=== PATIENT | male | born 1935 | race Caucasian/White ===

== ENCOUNTER 2017-01-23 19:07 | Inpatient (IN) | payer OTHER ==
[~2017-01-23] VITALS: Ht 172.7 cm; Wt 69.9 kg
--- NOTE | ~2017-01-23 | H ---
[facility] [place] [address] HISTORY AND PHYSICAL Name: MARY PARSONS Room #: 450-P ADM IN M.R.#: [id number] Admission: 01/23/17 Attend Phys: Jon Christopher MD Discharge: Date of : 37 Report #: [id number] THIS REPORT FOR: //name// CC: Jana Christopher DATE OF SERVICE: 01/24/2017 CHIEF COMPLAINT: Confusion and disorientation. HISTORY OF PRESENT ILLNESS: The patient is an 81-year-old male who presented to the ER last night after having approximately 2-day period of just being confused, slow memory and ____. He had no focal numbness or weakness. He has no prior memory issues. He states he just did not feel right about 2 days ago, could not figure it out, he kept his normal activities, but it was just somewhat slow. PAST MEDICAL HISTORY: Significant for prior ureteral stent, hyperlipidemia, some unknown abdominal wall cancer, right-sided hiatal hernia, rheumatic fever as a child, and appendectomy. MEDICATIONS: He only takes Benadryl p.r.n. He has taken Toprol, Zestril, simvastatin in the past, but none currently. ALLERGIES: PENICILLIN and SULFA. SOCIAL HISTORY: Nonsmoker, nondrinker, no alcohol, no recreational drugs. Lives independently with . REVIEW OF SYSTEMS: CONSTITUTIONAL: No fever or chills. HEENT: No headaches or visual changes. CHEST: No chest pain, tightness in chest, shortness of breath, cough or sputum production. GASTROINTESTINAL: No nausea, vomiting, diarrhea or constipation. GENITOURINARY: No burning or frequency. EXTREMITIES: No swelling or wounds. He does have knee pain, which is chronic. SKIN: No rashes or wounds. NEUROLOGIC: He has general confusion and slowness with poor memory. No focal weakness, no focal numbness. PHYSICAL EXAMINATION: VITAL SIGNS: In the ER, blood pressure 117/79, pulse was 86, respiratory rate 18. He is afebrile, O2 sats 97%. GENERAL: The patient is a very pleasant male who is awake, alert, in no acute distress. He recognizes me and his is present for exam today. [address] [address] HISTORY AND PHYSICAL Name: MARY PARSONS Room #: 450-[facility] IN M.R.#: [id number] Admission: 01/23/17 Attend Phys: Jon Christopher MD Discharge: Date of : 37 Report #: [id number] HEENT: His mucous membranes are moist. NECK: Supple without adenopathy, thyromegaly or bruits. CHEST: Clear to auscultation bilaterally with no crackles or wheezes. CARDIOVASCULAR: Regular rhythm without murmur, no S4. ABDOMEN: Soft, nondistended, nontender, no masses. Bowel sounds are active. EXTREMITIES: Show no edema and pulses are intact. NEUROLOGIC: He is awake, alert and oriented times 3. His cranial nerves 2-12 are grossly intact. His gross motor is equal bilaterally. Gross sensory is equal bilaterally and his coordination is normal. His responses are just slightly slow, but not significant as far as his verbal responses. DIAGNOSTIC DATA: His EKG showed a sinus rhythm of 81. No ST segment changes. There are some left axis deviation, which is unchanged. LABORATORY DATA: Sodium 139, potassium 4.3, chloride 106, bicarbonate 26, BUN 25, creatinine 1.0, glucose 89, calcium 9.2, T bili 0.6, D bili corrected ____. AST 26, ALT 21. Troponin less than 0.04. BNP 68, albumin 3.7. INR 1.0. WBCs 8.2, hemoglobin 13.5, hematocrit 39.5, platelet count 174, 73 segs, 17 lymphs. Urinalysis is negative. CT of the head shows a deep matter change on the left in the subinsular region ____ developing an old infarct. Chest x-ray shows no process. ASSESSMENT AND PLAN: Cerebrovascular accident with some confusion, no focal weakness. Start him on an aspirin, getting a carotid Doppler and echocardiogram and an MRI of his brain. Neurology was consulted in the ER since he is outside of the window for intervention, he is not a candidate for that. He does not need any PT and OT at this time. Once his evaluation is done, I suspect he will be discharged to home. We will monitor his pressure closely and we will restart him on a statin. By: 0940 [id number] Jon Christopher MD /nt
--- NOTE | ~2017-01-23 | 2DMMODE ---
[facility] [address] [place] [address] 2 D/M-MODE ECHOCARDIOGRAM Name: MARY PARSONS Room #: 450-P [facility] IN ..#: [id number] Admission: 01/23/17 Attend Phys: Jon Christopher, Discharge: Date of : 37 Date of Service: 01/25/17 0942 Report #: [id number] THIS REPORT FOR: //name// APPROVED REPORT Study performed: 01/25/2017 08:46:10 EXAM: Comprehensive 2D, Doppler, and color-flow Echocardiogram Patient Location: Out-Patient Room #: [facility] Status: routine Other Information Study Quality: Adequate/low parasternal window Indications CVA/TIA Echo Enhancing Agent Indication: Rule out Shunt Agent(s) / Amount(s) Used: Agitated Saline 6 cc 2D Dimensions RVDd: 24.13 mm LVEF(%): 57.39 (>50%) IVSd: 9.44 (7-11mm) LVOT Diam: 21.65 (18-24mm) LVDd: 43.47 mm PWd: 8.64 (7-11mm) LVDs: 30.46 (25-40mm) Aortic Root: 38.55 mm Chang's LVEF: 57.39 % Volumes Left Atrial Volume (Systole) Single Plane 4CH: 16.32 mL Single Plane 2CH: 16.58 mL LA ESV Index: 10.00 mL/m2 Aortic Valve AoV Peak Denis.: 1.23 m/s AO Peak Gr.: 6.06 mmHg LVOT Max P.19 mmHg LVOT Max V: 1.02 m/s GAMALIEL Vmax: 3.06 cm2 Mitral Valve E/A Ratio: 0.7 MV Decel. Time: 282.06 ms [facility] [place] [address] 2 D/M-MODE ECHOCARDIOGRAM Name: MARY PARSONS [facility] .R.#: [id number] Admission: 01/23/17 Attend Phys: Jno Christopher, Discharge: Date of : 37 Date of Service: 01/25/17 0942 Report #: [id number] MV E Max Denis.: 0.53 m/s MV A Denis.: 0.72 m/s MV PHT: 81.80 ms IVRT: 87.66 ms Pulmonary Valve PV Peak Denis.: 0.77 m/s PV Peak Gr.: 2.36 mmHg Pulmonary Vein P Vein S: 0.68 m/s P Vein A: 0.34 m/s P Vein D: 0.37 m/s P Vein A Dur.: 110.7 msec P Vein S/D Ratio: 1.84 Tricuspid Valve TR Peak Denis.: 2.40 m/s RAP Estimate: 5.00 mmHg TR Peak Gr.: 22.97 mmHg PA Pressure: 28.00 mmHg Left Ventricle The left ventricle is normal size. There is normal LV segmental wall motion. There is normal left ventricular wall thickness. Left ventricular systolic function is normal. LVEF is 55%. Mild diastolic dysfunction is present (impaired relaxation pattern). Right Ventricle The right ventricle is normal size. The right ventricular systolic function is normal. Atria The left atrium size is normal. Injection of bubbles documented no interatrial shunt. The right atrium size is normal. Aortic Valve Aortic valve leaflets are mildly thickened. Mild aortic regurgitation. There is no aortic valvular stenosis. Mitral Valve Mitral valve leaflets appear grossly normal Trace mitral regurgitation. No evidence of mitral valve stenosis. Tricuspid Valve The tricuspid valve is normal in structure. There is trace to mild tricuspid regurgitation. The right atrial pressure is estimated at 5 mmHg. Estimated PAP is 28mmHg. Pulmonic Valve [address] [address] 2 D/M-MODE ECHOCARDIOGRAM Name: MARY PARSONS Room #: 450-P [facility] IN [facility]#: [id number] Admission: 01/23/17 Attend Phys: Jon Christopher, Discharge: Date of : 37 Date of Service: 01/25/17 0942 Report #: [id number] Pulmonic valve is not well visualized. Great Vessels Aortic root is mildly dilated. Ascending aorta is not well visualized. IVC is normal in size and collapses >50% with inspiration. Pericardium There is no pericardial effusion. <Conclusion> Left ventricular systolic function is normal. There is normal LV segmental wall motion. LVEF 55%. Injection of bubbles documented no interatrial shunt. Aortic valve leaflets are mildly thickened. Cannot rule out bicuspid valve. Mild aortic regurgitation no stenosis. Mitral valve leaflets appear grossly normal. Trace mitral regurgitation. Pulmonary artery pressure of 28mmHg There is no pericardial effusion. <ELECTRONICALLY SIGNED> By: Todd Lora MD, FACC 01/25/1742 1 1 Todd Lora MD, FACC /INF
--- NOTE | ~2017-01-23 | EKG ---
[address] [address] ELECTROCARDIOGRAM REPORT Name: MARY PARSONS Room #: 450- ADM IN M.R.#: [id number] Admission: 01/23/17 Attend Phys: Jon Christopher MD Discharge: Date of : 37 Report #: [id number] THIS REPORT FOR: //name// [facility] ED Test Date: 2017-01-23 Test Time: 19:18:04 Pat Name: MARY PARSONS Department: Room: [facility] Gender: M Silverlight Developer: VICKEY Rodriguez : 1935 Requested By: Beverly Manriquez Order Number: [id number] MD: Todd Lora Measurements Intervals Stigler Rate: 81 P: 77 DE: 147 QRS: -28 QRSD: 90 T: 68 QT: 363 QTc: 422 Interpretive Statements Sinus rhythm Borderline left axis deviation Baseline wander in lead(s) V2 Compared to ECG 09/19/2010 08:04:54 No significant change was found Electronically Signed On 01-25-2017 8:36:13 CDT by Todd Lora [email or web address] <ELECTRONICALLY SIGNED> By: Todd Lora MD, [facility] 01/25/17 0836 1918 17 Todd Lora MD, [facility] /EPI
[~2017-01-23 19:07] MED LIST: ASPIRIN325; BYSTOLIC 5 MG5 M1; EFFIENT10 MG PO; LISINOPRIL5 MG PO; LIVALO4 MG; NITROGLYCERIN0.4 MG SL; SIMVASTATIN40 MG PO; TOPROL XL25 MG PO
[2017-01-23 19:08] VITALS: BP 117/79
[2017-01-23] MEDS ORDERED: BENADRYL25 MG PO (19:32)
[2017-01-23 19:40] LABS: BASOPHILS 0.8 % (0.0-2.0); EOSINOPHILS 0.8 % (0.0-3.0); HEMATOCRIT 39.5 % (42.0-52.0); HEMOGLOBIN 13.5 gm/dL (14.0-18.0); LYMPHOCYTES 17.5 % (24.0-44.0); MCH 30.8 pg (26.0-34.0); MCHC 34.1 g/dL (28.0-37.0); MCV 90.2 fL (80.0-100.0); MONOCYTES 7.4 % (1.0-8.0); PLATELET COUNT 174 thou/uL (150-400); POLYS 73.5 % (36.0-66.0); RBC 4.38 mil/uL (4.50-6.00); RDW 14.4 % (10.5-14.5); WBC 8.2 thou/uL (4.0-11.0)
[2017-01-23 19:45] LABS: MANUAL DIFF NO
[2017-01-23 19:50] LABS: ANION GAP 7 mmol/L (7-16); BUN 25 mg/dL (7-18); CALCIUM 9.2 mg/dL (8.5-10.1); CHLORIDE 106 mmol/L (98-107); CO2 26 mmol/L (21-32); GLUCOSE 89 mg/dL (74-106); POTASSIUM 4.3 mmol/L (3.5-5.1); SODIUM 139 mmol/L (136-145)
[2017-01-23 19:58] LABS: PROTIME 10.2 Seconds (9.3-11.4)
[2017-01-23 19:58] LABS: URINE BILIRUBIN NEGATIVE (Negative); URINE BLOOD NEGATIVE (Negative); URINE COLOR YELLOW; URINE GLUCOSE-RANDOM* NEGATIVE (Negative); URINE KETONES NEGATIVE (Negative); URINE NITRITE NEGATIVE (Negative); URINE PROTEIN (DIPSTICK) NEGATIVE (Negative); URINE SPECIFIC GRAVITY 1.025 (1.003-1.035); URINE UROBILINOGEN 0.2 E.U./dl (0.2-1.0)
[2017-01-23 20:03] LABS: ALBUMIN 3.7 g/dL (3.4-5.0); ALKALINE PHOSPHATASE 70 U/L (46-116); NT-PRO BRAIN NAT PEPTIDE 68 pg/mL (<300); SGOT 26 U/L (15-37); SGPT 21 U/L (30-65); TOTAL BILIRUBIN 0.6 mg/dL (<0.1-1.0); TOTAL PROTEIN 6.7 g/dL (6.4-8.2); TROPONIN-I < 0.04 ng/mL (<0.04-0.07)
[2017-01-23 20:56] VITALS: BP 137/69
[2017-01-23 21:19] VITALS: BP 145/84
[2017-01-23 23:13] VITALS: BP 117/68
[2017-01-24 03:18] VITALS: BP 107/81
[2017-01-24 07:58] VITALS: BP 124/72
[2017-01-24 12:05] VITALS: BP 105/64
[2017-01-24 12:25] LABS: FOLIC ACID 17.9 ng/mL (8.6-58.9); TSH 1.572 uIU/mL (0.358-3.740)
[2017-01-24 16:38] VITALS: BP 101/64
[2017-01-24 19:20] VITALS: BP 103/63
[2017-01-25 04:04] VITALS: BP 115/72
[2017-01-25 08:14] VITALS: BP 112/58
[2017-01-25 11:50] VITALS: BP 101/63
[2017-01-25] MEDS ORDERED: ATORVASTATIN CA10 MG PO (12:54)
[2017-01-25] MEDS ORDERED: ASPIRIN EC325 MG PO (12:56)
[2017-01-25 13:17] VITALS: BP 101/63
== END 2017-01-25 13:40 | disposition home or self-care (01) | DRG 64 ==
LOC: ER 19:07 → 4W 20:11 → EROBS 20:11 → 4W 20:58
PROVIDERS: Nurse Practitioner Family; Psychiatry & Neurology Neurology
DX: I63.9 Cerebral infarction, unspecified (principal); G93.40 Encephalopathy, unspecified; E78.5 Hyperlipidemia, unspecified; A80.9 Acute poliomyelitis, unspecified; Z90.49 Acquired absence of other specified parts of digestive tract; Z88.0 Allergy status to penicillin; Z88.2 Allergy status to sulfonamides
CPT/HCPCS: 10045